=== PATIENT | female | born 1965 | race African-American/Black ===

== ENCOUNTER → 2020-06-18 | Day surgery (SDC) | payer OTHER ==
[~2020-06-18] MED LIST: AMLODIPINE-BEN1 EAC3 PO; DITROPAN5 MG PO; HCTZ25 MG PO; MOTRIN600 MG PO; NEURONTIN300 MG PO; NORVASC5 MG PO; ZOCOR40 MG PO; ZYRTEC10 M3 PO
[2020-06-18 08:44] LABS: HGB 15.2 g/dl (12.5-16.0); MCH 28.7 pg (25.0-31.0); MCHC 32.3 g/dL (32.0-36.0); MCV 88.7 fL (78.0-100.0); RBC 5.3 M/uL (4.20-5.40); RDW 12.9 % (11.5-14.0); WBC 3.4 K/uL (4.0-10.5)
[2020-06-18 09:01] LABS: ALBUMIN 4.2 g/dL (3.4-5.0); BILIRUBIN - TOTAL 0.4 mg/dL (0.2-1.0); BUN/CREAT RATIO (CALC) 9.1 RATIO; CREATININE 0.88 mg/dL (0.51-0.95); GLOBULIN (CALCULATION) 3.9 g/dL; POTASSIUM 3.9 mmol/L (3.5-5.1); TOTAL PROTEIN 8.1 g/dL (6.4-8.2)
== END | disposition home or self-care (01) ==
LOC: FAS 07:30
PROVIDERS: Surgery
DX: Z12.11 Encounter for screening for malignant neoplasm of colon (principal); I10 Essential (primary) hypertension; E78.00 Pure hypercholesterolemia, unspecified; G43.909 Migraine, unspecified, not intractable, without status migrainosus; G89.29 Other chronic pain; M54.5 Low back pain
CPT/HCPCS: 36415; 80053; J1610; J2704; J7120